=== PATIENT | female | born 1990 | race Caucasian/White ===

== ENCOUNTER 2021-01-20 18:37 | Emergency (ER) | payer OTHER, SELFPAY ==
[2021-01-20 18:45] VITALS: BP 123/84; PULSE 72; RESP 18; TEMP 36.5; O2SAT 100
--- NOTE | 2021-01-20 18:48 | ED.EAR ---
HPI - Ear Problem General Chief complaint: Ear Stated complaint: Lt Ear Pain Time Seen by Provider: 01/20/21 18:52 Source: patient and RN notes reviewed Mode of arrival: ambulatory Limitations: no limitations History of Present Illness HPI Narrative: 30-year-old female presents concern for left ear pain and pressure. She reports symptoms started several days ago with a sore throat which has resolved. She denies nasal congestion or rhinorrhea. Denies fever, drainage from the ear, cough. Reports taking Tylenol one time. Complaint: ear pain Related Data Allergies Allergy/AdvReac Type Severity Reaction Status Date / Time No Known Allergies Allergy Verified 01/20/21 18:53 Review of Systems Review of Systems: CONSTITUTIONAL: Denies malaise, chills, sweats, or fever. EYES: Denies visual changes, redness, or discharge. ENT: Denies rhinorrhea, congestion, sinus pain, and sore throat. Reports left ear pain CARDIOVASCULAR: Denies chest pain, palpitations, or edema. RESPIRATORY: Denies cough dyspnea. GASTROINTESTINAL: Denies abdominal pain, nausea, vomiting, diarrhea SKIN: Denies rash or itching. MUSCULOSKELETAL: Denies myalgia. NEUROLOGIC: Denies headache. All systems reviewed & are unremarkable except as noted in HPI and below PMFSH Comments At time of signature, agree with nursing past medical, surgical, social and family history. There is no relevant family history pertinent to the presenting complaint Exam Narrative: GENERAL: Well-appearing, well-nourished, and in no acute distress. HEAD: Normocephalic EYES: PERRLA, conjunctivae clear ENT: Nares clear, left turbinates slightly edematous. Mucous membranes moist. Left TM pearly escalante with dull light reflex right pearly escalante with sharp light reflex; no tragal tenderness. Oropharynx not erythematous without lesions. Tonsils not enlarged and without exudate, no drooling, no hoarseness, no trismus, uvula midline. NECK: Supple. No lymphadenopathy CHEST: Clear to auscultation, breath sounds equal. No wheezing, rhonchi, rales, or stridor. No respiratory distress, speaks in full sentences. HEART: Regular rate and rhythm. No murmur heard. SKIN: Warm, dry, no rash. NEURO: Alert and oriented x3. PSYCH: Normal mood and affect Course Course Emergency Course: Patient is aware of diagnosis, understands and agrees to treatment plan. Anticipatory guidance given. Patient agrees to follow-up as directed and is aware of reasons to seek care at the emergency department. Portions of this record may have been created with voice recognition software Vital Signs Vital signs: Vital Signs Temperature 97.7 F 01/20/21 18:45 Pulse Rate 72 01/20/21 18:45 Respiratory Rate 18 01/20/21 18:45 Blood Pressure 123/84 01/20/21 18:45 Pulse Oximetry 100 01/20/21 18:45 Temperature 97.7 F 01/20/21 18:45 Pulse Rate 72 01/20/21 18:45 Respiratory Rate 18 01/20/21 18:45 Blood Pressure 123/84 01/20/21 18:45 Pulse Oximetry 100 01/20/21 18:45 Reviewed. Medical Decision Making MDM Narrative Medical decision making narrative: Differential diagnosis considered: Sheehan virus, strep pharyngitis, allergic rhinitis, upper respiratory tract infection, sinusitis, rhinosinusitis, nasopharyngitis. viral pharyngitis, otitis media, otitis externa, pneumonia, bronchitis, viral cough syndrome, viral syndrome, and influenza. Exam findings show no acute concerns or changes; patient is non-toxic appearing and is in no distress. Patient is appropriate for outpatient treatment and follow-up. Vital Signs Vital Signs: Vital Signs Temperature 97.7 F 01/20/21 18:45 Pulse Rate 72 01/20/21 18:45 Respiratory Rate 18 01/20/21 18:45 Blood Pressure 123/84 01/20/21 18:45 Pulse Oximetry 100 01/20/21 18:45 Temperature 97.7 F 01/20/21 18:45 Pulse Rate 72 01/20/21 18:45 Respiratory Rate 18 01/20/21 18:45 Blood Pressure 123/84 01/20/21 18:45 Pulse Oximetry 100 01/20/21 18:45
== END 2021-01-20 19:04 | disposition home or self-care (01) ==
PROVIDERS: Emergency Provider Nurse Practitioner; PCP Nurse Practitioner Family
DX: H69.92 Unspecified Eustachian tube disorder, left ear (principal)
CPT/HCPCS: 99213; G0463

== ENCOUNTER 2021-11-23 19:05 | Emergency (ER) | payer OTHER, SELFPAY ==
[2021-11-23 19:18] VITALS: BP 132/76; PULSE 60; RESP 18; TEMP 36.2; O2SAT 100
--- NOTE | 2021-11-23 19:31 | ED.ANIMALBIT ---
HPI - Animal Bite General Chief Complaint: Animal Bite Stated Complaint: Dog Bite Lt Leg Time Seen by Provider: 11/23/21 19:09 Source: patient Mode of arrival: ambulatory Limitations: no limitations History of Present Illness HPI narrative: 31-year-old female presents to [facility] with complaints of dog bite to the posterior aspect of her left calf since yesterday at 4 PM. Patient reports that she was breaking up a fight between 2 dogs when she was bit in her left leg. Patient reports that she believes that her tetanus shot is within the past 5 years. Patient denies numbness, tingling, fever, purulent drainage or bleeding. MD complaint: animal bite Onset (ago): hour(s) (27) Animal: dog Description of animal: household pet Mechanism: bite Location - Extremities: Left: lower leg Context: animals fighting Related Data Patient tetanus UTD: Yes Allergies Allergy/AdvReac Type Severity Reaction Status Date / Time No Known Allergies Allergy Verified 11/23/21 19:11 Review of Systems Constitutional: Constitutional: Denies chills, Denies fatigue, Denies fever(s) and Denies weakness ENT: Denies dizziness Respiratory: Respiratory: Denies chest congestion, Denies cough and Denies dyspnea Gastrointestinal: Gastrointestinal: Denies abdominal pain, Denies diarrhea, Denies nausea and Denies vomiting Integumentary/Breasts: Comments: Dog bite to left posterior calf Neurologic: Denies dizziness PMFSH Family History Family History (Updated 11/23/21 @ 19:33 by Kiah Khoury APRN) Mother Leukemia Social History Social History (Updated 11/23/21 @ 19:33 by Kiah Khoury APRN) Smoking status: Never smoker Comments At time of signature, I agree with nursing past medical, surgical, social and family history. There is no relevant family history pertinent to the presenting complaint. Exam Const: General: healthy appearing Nutritional Appearance: well nourished Orientation/consciousness: patient oriented x3 Limitations: no limitations HENMT: Head: normal to inspection Eyes: Conjunctivae: conjunctivae normal Neck: Neck: normal visual inspection Resp: Effort & Inspection: normal respiratory effort and not labored Auscultation: clear to auscultation bilaterally and no crackles Cardio: Rate: regular rate Rhythm: regular rhythm Heart sounds: no murmurs Skin: General skin exam: normal color Rashes: no rashes Other: 9 cm x 10 cm area of bruising with two 1 cm healing puncture wounds noted to posterior aspect of left calf. There is no streaking erythema, purulent drainage, bleeding or signs of infection noted. Neuro: General: patient oriented x3 Speech: normal speech Gait exam (Neuro): Normal gait present Extrem: Other: Full range of motion noted to left leg, there is area of bruising and healing puncture wounds noted to posterior left calf from recent dog bite Psych: Affect: normal affect Attitude: cooperative Course Course Level of Care: Express Care Visit Vital Signs Vital signs: Vital Signs Temperature 36.2 C L 11/23/21 19:18 Pulse Rate 60 11/23/21 19:18 Respiratory Rate 18 11/23/21 19:18 Blood Pressure 132/76 11/23/21 19:18 Pulse Oximetry 100 11/23/21 19:18 Oxygen Delivery Room Air 11/23/21 19:18 Temperature 36.2 C L 11/23/21 19:18 Pulse Rate 60 11/23/21 19:18 Respiratory Rate 18 11/23/21 19:18 Blood Pressure 132/76 11/23/21 19:18 Pulse Oximetry 100 11/23/21 19:18 Oxygen Delivery Room Air 11/23/21 19:20 MDM - Animal Bite MDM Narrative Medical decision making narrative: Wound care discussed with patient. Patient agrees to monitor area closely for signs and symptoms of infection. Tetanus shot is up-to-date. Patient will be treated with antibiotic. Patient agrees to monitor symptoms closely and agrees to proceed to the emergency room if symptoms worsen. Differential Diagnosis Differential diagnosis: Likely bite by animal and cat bite Critic
== END 2021-11-23 19:39 | disposition home or self-care (01) ==
PROVIDERS: Emergency Provider Nurse Practitioner Family; PCP Nurse Practitioner Family
DX: S81.832A Puncture wound without foreign body, left lower leg, initial encounter (principal); W54.0XXA Bitten by dog, initial encounter; Z86.16 Personal history of COVID-19
CPT/HCPCS: 99213; G0463

== ENCOUNTER 2022-06-15 09:39 | Emergency (ER) | payer OTHER, SELFPAY ==
--- NOTE | 2022-06-15 09:52 | ED.URI ---
HPI - URI/Sore Throat General Chief Complaint: Upper Respiratory Infection Stated Complaint: sorethroat Time Seen by Provider: 06/15/22 10:05 Source: patient, RN notes reviewed and old records reviewed Mode of arrival: ambulatory Limitations: no limitations History of Present Illness HPI Narrative: 31 year old female who presents to [facility] care with complaints of sore throat which started yesterday and some runny nose. Patient reports that it hurts to swallow especially the left side of her throat. Patient reports that daughter had strep throat last month and is ill again. Patient reports that she has not had a fever or cough, denies any nausea,vomiting or diarrhea. Patient reports that she has not taken any over the counter medication.Patient has been COVID vaccinated and has had flu shot. MD elicited complaint: cough and sore throat Onset (ago): day(s) (1) Pain scale (0-10): 5 Able to tolerate fluids by mouth: Yes Treatments prior to arrival: none Related Data Allergies Allergy/AdvReac Type Severity Reaction Status Date / Time No Known Allergies Allergy Verified 06/15/22 09:48 Review of Systems Review of Systems: CONSTITUTIONAL: Denies malaise, chills, sweats, or fever. EYES: Denies visual changes, redness, or discharge. ENT: Reports rhinorrhea, congestion, sinus pain, otalgia positive for sore throat. CARDIOVASCULAR: Denies chest pain, palpitations, or edema. RESPIRATORY: Reports cough.? Denies dyspnea. GASTROINTESTINAL: Denies abdominal pain, nausea, vomiting, diarrhea SKIN: Denies rash or itching. MUSCULOSKELETAL: Denies myalgia. NEUROLOGIC: Denies headache. All systems reviewed & are unremarkable except as noted in HPI and below PMFSH Past Medical History Medical History (Updated 06/15/22 @ 12:54 by Jackie Cervantes NP) COVID-06 May 2020 Surgical History Surgical History (Updated 06/15/22 @ 09:54 by Jackie Cervantes NP) Previous section Family History Family History (Updated 11/23/21 @ 19:33 by Kiah Khoury APRN) Mother Leukemia Social History Social History (Updated 11/23/21 @ 19:33 by Kiah Khoury APRN) Smoking status: Never smoker Comments At time of signature, agree with nursing past medical, surgical, social and family history. There is no relevant family history pertinent to the presenting complaint Exam Narrative: GENERAL: Well-appearing, well-nourished, and in no acute distress. HEAD: Normocephalic EYES: PERRLA, conjunctivae clear ENT: Nares clear, turbinates edematous and erythematous, clear discharge. Mucous membranes moist. TM pearly escalante with dull light reflex bilaterally; no tragal tenderness. Oropharynx erythematous without lesions. Tonsils red enlarged and without exudate, no drooling, no hoarseness, no trismus, uvula midline. NECK: Supple. lymphadenopathy CHEST: Clear to auscultation, breath sounds equal. No wheezing, rhonchi, rales, or stridor. No respiratory distress, speaks in full sentences.SAO2 100% on room air HEART: Regular rate and rhythm. No murmur heard. SKIN: Warm, dry, no rash. NEURO: Alert and oriented x3. PSYCH: Normal mood and affect Course Course Emergency Course: Patient is aware of diagnosis, understands and agrees to treatment plan.? Anticipatory guidance given.? Patient agrees to follow-up as directed and is aware of reasons to seek care at the emergency department. Portions of this record may have been created with voice recognition software Level of Care: Express Care Visit Vital Signs Vital signs: Vital Signs Temperature 36.3 C L 06/15/22 09:56 Pulse Rate 94 06/15/22 09:56 Respiratory Rate 16 06/15/22 09:56 Blood Pressure 126/67 06/15/22 09:56 Pulse Oximetry 100 06/15/22 09:56 Oxygen Delivery Room Air 06/15/22 09:56 Temperature 36.3 C L 06/15/22 09:56 Pulse Rate 94 06/15/22 09:56 Respiratory Rate 16 06/15/22 09:56 Blood Pressure 126/67 06/15/22 09:56
[2022-06-15 09:56] VITALS: BP 126/67; PULSE 94; RESP 16; TEMP 36.3; O2SAT 100
== END 2022-06-15 10:18 | disposition home or self-care (01) ==
PROVIDERS: Emergency Provider Registered Nurse; PCP Nurse Practitioner Family
DX: J02.0 Streptococcal pharyngitis (principal)
CPT/HCPCS: 87880; 99213; G0463